=== PATIENT | male | born 1945 | race Caucasian/White ===

== ENCOUNTER 2020-12-30 01:51 | Observation (INO) ==
[2020-12-30] MEDS ORDERED: FUROSEMIDE 40 MG/4 ML VIAL IV STA (02:17)
[2020-12-30] MEDS ORDERED: ALBUTEROL/IPRATROPIUM 3 ML NEB RESP TX STA (02:17)
[2020-12-30 02:25] LABS: Basophils % 0.4 % (0.0-0.8); Eosinophils # 0.3 10*3/uL (0.0-0.87); Eosinophils % 3.3 % (0.00-10.9); Hematocrit 37.9 VOL% (42.0-52.0); Immature Granulocytes % 0.2 %; Immature Granulocytes Absolute 0.02 #; Lymphocytes # 1.2 10*3/uL (1.4-4.0); Lymphocytes % 13.8 % (21.2-54.2); Mean Corpuscular HGB Conc 31.7 GM/DL (32-36); Mean Corpuscular Volume 92.2 FL (87-102); Mean Platelet Volume 10.4 FL (9.6-12.0); Monocytes % 7.7 % (1.7-12.7); Neutrophils % 74.6 % (38.7-73.9); Platelet Count 225 T/CUMM (130-400); Red Blood Count 4.11 MC/CUMM (3.8-5.5); Red Cell Distribution Width 12.5 % (9.3-17.3); White Blood Count 8.6 T/CUMM (4-12)
[2020-12-30 02:55] LABS: Alanine Aminotransferase 29 U/L (16-61); Albumin 3.4 G/DL (3.4-5.0); Alkaline Phosphatase 97 U/L (45-117); Aspartate Amino Transferase 22 U/L (0-37); Bilirubin,Total < 0.39 MG/DL (0.2-1.0); Blood Urea Nitrogen 20 MG/DL (7-18); Calcium 8.6 MG/DL (8.5-10.1); Carbon Dioxide 29 MMOL/L (21-32); Estimated Glom Filtration Rate 84 ML/MIN; Glucose 126 MG/DL (74-106); Osmolality,Calculated 277.8 MOS/KG (273-304); Potassium 4.2 MMOL/L (3.5-5.1); Sodium 137 MMOL/L (136-145); Total Protein 7.6 G/DL (6.4-8.2)
[2020-12-30] MEDS ORDERED: methylPREDNISolone SOD SUC 125 MG/2 ML VIAL IV STA (03:55)
[2020-12-30] MEDS ORDERED: LEVOFLOXACIN INJ 500 MG/100 ML PREMIX IV STA (03:55)
[2020-12-30 04:27] LABS: ABG Base Excess 3.5 MMOL/L (-2.5-2.5); ABG HCO3 27.5 MMOL/L (20-26); ABG Oxygen Saturation 96.9 % (95-100); ABG PCO2 51.4 MM HG (35-48); ABG PH 7.374 (7.35-7.45); ABG PO2 94.4 MM HG (80-95); ABG TCO2 26.1 MMOL/L (23-27)
[2020-12-30] MEDS ORDERED: ACETAMINOPHEN 325 MG TABLET PO PRN (04:32)
[2020-12-30] MEDS ORDERED: DEXTROSE 50% 25 GM/50 ML VIAL IV PRN (04:32)
[2020-12-30] MEDS ORDERED: GLUCAGON 1 MG VIAL IM PRN (04:32)
[2020-12-30] MEDS ORDERED: POTASSIUM CHLORIDE RIDER 10 MEQ in PREMIX 1 EACH IV PRN (04:46)
[2020-12-30] MEDS ORDERED: MAGNESIUM SULF RIDER 4 GM/100 ML PREMIX IV PRN (04:49)
[2020-12-30] MEDS ORDERED: MAGNESIUM SULF RIDER 2 GM/50 ML PREMIX IV PRN (04:49)
[2020-12-30] MEDS ORDERED: POTASSIUM CHLORIDE RIDER 0 ML IV ONE (05:55)
[2020-12-30] MEDS ORDERED: ENOXAPARIN 40 MG/0.4 ML SYRINGE ONE (06:08)
[2020-12-30] MEDS: ENOXAPARIN 40 MG/0.4 ML SYRINGE SUBCUT SCH (06:15)
[2020-12-30] MEDS: ALBUTEROL 1.25 MG/3 ML NEB RESP TX SCH ×2 (07:06→10:16)
[2020-12-30] MEDS ORDERED: ASPIRIN 325 MG TABLET PO SCH (09:00)
[2020-12-30] MEDS ORDERED: METOPROLOL SUCCINATE XL 50 MG TABLET PO SCH (09:00)
[2020-12-30] MEDS: GABAPENTIN 400 MG CAPSULE PO SCH ×2 (10:18→20:31)
[2020-12-30] MEDS: LOSARTAN 50 MG TABLET PO SCH (10:18)
[2020-12-30] MEDS: ATORVASTATIN 40 MG TABLET PO SCH (10:19)
[2020-12-30] MEDS: PANTOPRAZOLE 40 MG TABLET PO SCH (10:19)
[2020-12-30] MEDS: predniSONE 20 MG TABLET PO SCH (10:19)
[2020-12-30] MEDS: FUROSEMIDE 40 MG/4 ML VIAL IV SCH ×2 (10:19→15:38)
[2020-12-30] MEDS: INSULIN LISPRO 100 UNIT/ML SUBCUT SCH ×2 (10:56→18:19)
[2020-12-30] MEDS: ALBUTEROL/IPRATROPIUM 3 ML NEB RESP TX SCH ×2 (11:20→19:29)
[2020-12-30] MEDS: CARBAMAZEPINE 400 MG PO SCH (20:31)
[2020-12-31] MEDS: ALBUTEROL/IPRATROPIUM 3 ML NEB RESP TX SCH ×4 (00:24→19:45)
[2020-12-31] MEDS: ENOXAPARIN 40 MG/0.4 ML SYRINGE SUBCUT SCH (05:40)
[2020-12-31 05:55] LABS: Basophils % 0.5 % (0.0-0.8); Eosinophils # 0.2 10*3/uL (0.0-0.87); Eosinophils % 2.4 % (0.00-10.9); Hematocrit 38.2 VOL% (42.0-52.0); Hemoglobin 12.3 GM/DL (14.0-18.0); Immature Granulocytes % 0.3 %; Immature Granulocytes Absolute 0.02 #; Lymphocytes # 1.7 10*3/uL (1.4-4.0); Lymphocytes % 23.3 % (21.2-54.2); Mean Corpuscular HGB Conc 32.2 GM/DL (32-36); Mean Corpuscular Volume 90.1 FL (87-102); Mean Platelet Volume 10.6 FL (9.6-12.0); Monocytes % 10.1 % (1.7-12.7); Neutrophils % 63.4 % (38.7-73.9); Platelet Count 238 T/CUMM (130-400); Red Blood Count 4.24 MC/CUMM (3.8-5.5); Red Cell Distribution Width 12.4 % (9.3-17.3); White Blood Count 7.4 T/CUMM (4-12)
[2020-12-31] MEDS: DOXYCYCLINE HYCLATE INJ 100 MG in SODIUM CHLORIDE 0.9% 100 ML IV SCH ×2 (06:12→16:43)
[2020-12-31 06:31] LABS: Alanine Aminotransferase 24 U/L (16-61); Albumin 3.2 G/DL (3.4-5.0); Alkaline Phosphatase 89 U/L (45-117); Aspartate Amino Transferase 16 U/L (0-37); Bilirubin,Total < 0.39 MG/DL (0.2-1.0); Blood Urea Nitrogen 22 MG/DL (7-18); Carbon Dioxide 30 MMOL/L (21-32); Estimated Glom Filtration Rate 76 ML/MIN; Glucose 117 MG/DL (74-106); HDL Cholesterol 50 MG/DL (40-60); Osmolality,Calculated 280.5 MOS/KG (273-304); Potassium 3.9 MMOL/L (3.5-5.1); Risk Ratio 2.16; Sodium 139 MMOL/L (136-145); Total Protein 7.4 G/DL (6.4-8.2); Triglycerides 73 MG/DL (2-150); VLDL CHOLESTEROL 14.6 MG/DL
[2020-12-31] MEDS: INSULIN LISPRO 100 UNIT/ML SUBCUT SCH ×2 (08:08→16:37)
[2020-12-31] MEDS: GABAPENTIN 400 MG CAPSULE PO SCH ×2 (09:59→21:13)
[2020-12-31] MEDS: ATORVASTATIN 40 MG TABLET PO SCH (10:00)
[2020-12-31] MEDS: predniSONE 20 MG TABLET PO SCH (10:00)
[2020-12-31] MEDS: LOSARTAN 50 MG TABLET PO SCH (10:01)
[2020-12-31] MEDS: PANTOPRAZOLE 40 MG TABLET PO SCH (10:01)
[2020-12-31] MEDS: ASPIRIN EC 81 MG TABLET PO SCH (10:01)
[2020-12-31] MEDS: CARBAMAZEPINE 400 MG PO SCH ×2 (10:02→21:13)
[2020-12-31] MEDS: FUROSEMIDE 40 MG/4 ML VIAL IV SCH ×2 (10:07→16:43)
[2020-12-31] MEDS: cefTRIAXone 1,000 MG in SODIUM CHLORIDE 0.9% 100 ML IV SCH (10:10)
[2020-12-31] MEDS ORDERED: LOSARTAN 50 MG TABLET PO ONE (12:40)
[2020-12-31] MEDS ORDERED: POTASSIUM CHLORIDE 20 MEQ TABLET PO ONE (12:43)
[2021-01-01] MEDS: ALBUTEROL/IPRATROPIUM 3 ML NEB RESP TX SCH ×2 (00:43→07:44)
[2021-01-01 05:24] LABS: Basophils # 0.1 10*3/uL (0.0-0.2); Basophils % 0.6 % (0.0-0.8); Eosinophils # 0.2 10*3/uL (0.0-0.87); Eosinophils % 2.4 % (0.00-10.9); Hematocrit 37.8 VOL% (42.0-52.0); Hemoglobin 12.5 GM/DL (14.0-18.0); Immature Granulocytes % 0.4 %; Immature Granulocytes Absolute 0.03 #; Mean Corpuscular HGB Conc 33.1 GM/DL (32-36); Mean Corpuscular Volume 88.7 FL (87-102); Mean Platelet Volume 10.9 FL (9.6-12.0); Monocytes % 7.1 % (1.7-12.7); Neutrophils % 63.5 % (38.7-73.9); Platelet Count 249 T/CUMM (130-400); Red Blood Count 4.26 MC/CUMM (3.8-5.5); Red Cell Distribution Width 12.3 % (9.3-17.3); White Blood Count 7.9 T/CUMM (4-12)
[2021-01-01 05:55] LABS: Calcium 8.9 MG/DL (8.5-10.1); Osmolality,Calculated 279.8 MOS/KG (273-304); Potassium 3.7 MMOL/L (3.5-5.1)
[2021-01-01] MEDS: DOXYCYCLINE HYCLATE INJ 100 MG in SODIUM CHLORIDE 0.9% 100 ML IV SCH (06:35)
[2021-01-01] MEDS: ENOXAPARIN 40 MG/0.4 ML SYRINGE SUBCUT SCH (06:36)
[2021-01-01] MEDS ORDERED: MAGNESIUM SULF RIDER 4 GM/100 ML PREMIX IV ONE (07:45)
[2021-01-01] MEDS ORDERED: POTASSIUM CHLORIDE 20 MEQ TABLET PO ONE (07:46)
[2021-01-01] MEDS: INSULIN LISPRO 100 UNIT/ML SUBCUT SCH (07:55)
[2021-01-01] MEDS: predniSONE 20 MG TABLET PO SCH (08:31)
[2021-01-01] MEDS: ATORVASTATIN 40 MG TABLET PO SCH (08:31)
[2021-01-01] MEDS: ASPIRIN EC 81 MG TABLET PO SCH (08:31)
[2021-01-01] MEDS: PANTOPRAZOLE 40 MG TABLET PO SCH (08:31)
[2021-01-01] MEDS: GABAPENTIN 400 MG CAPSULE PO SCH (08:31)
[2021-01-01] MEDS: CARBAMAZEPINE 400 MG PO SCH (08:32)
[2021-01-01] MEDS: cefTRIAXone 1,000 MG in SODIUM CHLORIDE 0.9% 100 ML IV SCH (08:37)
[2021-01-01] MEDS ORDERED: FUROSEMIDE 40 MG TABLET PO SCH (09:00)
[2021-01-01] MEDS ORDERED: LOSARTAN 50 MG TABLET PO SCH (09:00)
[2021-01-01 12:11] VITALS: BP 172/62
== END 2021-01-01 14:02 | disposition home or self-care (01) ==
LOC: EDUNIT# → SUATTDRO → EDBD → N.EDINP 01:51 → N.ED 01:51 → SUATTDRO 04:32 → N.EDINP 09:25 → N.TELEN 09:57
PROVIDERS: ADMIT Emergency Medicine; ATTEND Internal Medicine